=== PATIENT | female | born 1990 | race Caucasian/White ===

== ENCOUNTER → 2016-08-09 | Outpatient (CLI) | payer BC, MEDICAID | LOC: M LAB 13:19 | PROVIDERS: ATTEND Nurse Practitioner Family | DX: Z72.51 High risk heterosexual behavior (principal) ==

== ENCOUNTER 2016-09-04 22:46 | Emergency (ER) | payer BC, MEDICAID ==
[~2016-09-04] VITALS: Ht 167.6 cm; Wt 139.3 kg
[2016-09-04] MEDS ORDERED: TYLE500T78 PO (22:59)
[2016-09-04] MEDS ORDERED: LEXA1TAB PO (22:59)
[2016-09-05] MEDS ORDERED: ACET30TAB PO (00:40)
[2016-09-05] MEDS ORDERED: CLEO300C2 PO (00:43)
[2016-09-05] MEDS ORDERED: CLINDAMYCIN 150 MG CAP PO ONE (00:45)
[2016-09-05] MEDS ORDERED: ACETAMINOPH W/CODEINE #3 TAB UD PO ONE (00:45)
[2016-09-05 00:47] VITALS: BP 126/76
== END 2016-09-05 00:52 | disposition home or self-care (01) ==
LOC: M ED 09-05 00:03
DX: K08.89 Other specified disorders of teeth and supporting structures (principal)